=== PATIENT | female | born 1990 | race Caucasian/White ===

== ENCOUNTER 2024-11-09 10:51 | Outpatient (AMB) | payer MEDICAID, SELFPAY ==
[2024-11-09 11:36] VITALS: BP 121/75; PULSE 68; RESP 14; TEMP 36.8; O2SAT 98; BMI 21.0
--- NOTE | 2024-11-09 11:36 | AMB.OBINITIA ---
Vital Signs 11/09/24 11:36 Height 1.68 m Height Method Stated Weight 59.08 kg Weight Measurement Method Standing Scale BMI 21.0 BP 121/75 Blood Pressure Source Automatic Cuff Blood Pressure Location Left Upper Arm Position Sitting Respiration 14 Pulse 68 Pulse Source Monitor Temp 98.3 F Temp Source Oral Pulse Oximetry (%) 98 Oxygen Delivery Method Room Air Allergies/Home Meds Allergies & Medications Allergies No Known Allergies Allergy (Verified 11/09/24 11:39) Medication Reconciliation PNV 153-FA 400 mcg-om3 35 mg-dha 25 mg-epa 5 mg-fish oil chew tablet ( Gummies) 1 tab PO QDAY 90 days #90 tabs 11/09/24 [Rx] doxylamine 10 mg-pyridoxine (vit B6) 10 mg tablet,delayed release (Diclegis) 1 tab PO BID 30 days #60 tabs 11/09/24 [Rx] Intake Visit Data Collection New Patient or Established: New Patient (never been to [facility]) Reason for Visit:: CARE Seen by Clinical Staff ONLY (RN/MA): No Health Administration Teacher Required: No Do You Feel Safe at Home: Yes Authorities Contacted: N/A PCP or OBGYN visit in last 3 months: Yes Hx Now: Yes Are you currently on any form of Control: No Pain Present Currently: Yes Pain Location: Head Pain Scale Used: Pierce-Vizcaino/Numerical Pain scale:: 3 Smoking Status Smoking Status: Former smoker Questionnaires Covid-19 Vaccine Questionnaire Has patient been vacinated for Covid-19 Have you been vacinated for Covid-19: No PHQ-9 PHQ-2 Over the last 2 weeks, how often have you been bothered by any of the following problems? 1. Little interest or pleasure in doing things: not at all 2. Feeling down, depressed, or hopeless: not at all Total score: 0 PHQ-9 3. Trouble falling or staying asleep, or sleeping too much: Not at all 4. Feeling tired or having little energy: Not at all 5. Poor appetite or overeating: Not at all 6. Feeling bad about yourself - or that you are a failure or have let yourself or your family down: Not at all 7. Trouble concentrating on things, such as reading the newspaper or watching television: Not at all 8. Moving or speaking so slowly that other people could have noticed? - Or the opposite - being so fidgety or restless that you have been moving around a lot more than usual: not at all 9. Thoughts that you would be better off or of hurting yourself in some way: Not at all Total score: 0 Source: Developed by Drs. Austin Cifuentes, Michelle Malik, Rj Aguilar and colleagues, with an educational ruby from [employer]. Depression screen completed yes Social History Living Situation History Marital Status: Single Lives With: Family Housing: House Tobacco History Smoking Status: Former smoker Alcohol History Alcohol Intake: Never Domestic Abuse History Do You Feel Safe at Home: Yes History of Present Illness HPI Narrative 34 yo forOBI. LMP 08/14/24. EDC 05/21/25. sure dates. No PMH,No surgery. prev THC, stopped. autistic child. Increased nausea/vomiting, lost 5lb. denies bleeding,leaking or uc. happy about OB Initial Visit OB Flowsheet OB Flowsheet Initial Weight: Not Recorded Date <del>?</del> EGA Weight BP Alb Glu CTX Pres Fundal ht FHR Mov Dilation Station Effacement Hx Notes Visit Note 11/09/24 <del>?</del> 12w 3d 59.08 kg 121/75 absent unknown 12 156 absent 34-year-old 2 para 1 for OBI. Last period was August 14, 2024. EDC May 29, 2024. Patient has sure dates. Previous history of THC use but she stopped with . No OB complaints. She is very happy. Increased nausea and vomiting still patient would like something for that. vitamins switched to the gummy form. And I also started patient on Diclegis for nausea and vomiting. She is good to take that twice a day. Discussed comfort measures and diet. Discussed increased weight gain. I scheduled patient with Dr. Castaneda for MFM. And OB panel today with A1c and NIPT and carrier screens. Return in 3 weeks for OB Menstrual History Menstrual reliability: definite Flow: normal Menstrual regularity: regular Monthly: Yes Age at menarche: 18 On control pills at conception: No Associated symptoms (LMP): Reports nausea, vomiting, fatigue and breast tenderness OB History : 2 Para: 1 # of Living Children: 1 Delivery History 1st : Child's name: EVE date: 04/14/21 sex: female Gestational age at delivery (weeks): 40 Delivery type: vaginal Delivery complications: NONE History of depression before or after : No Infection History & Risk Evaluation History of STDs: none Genetic Screening & History Genetic Screening/Teratology Counseling - Includes patient, baby's father, or anyone in either family with: 1. Patient's age 35 years or older as of estimated date of delivery: No 2. Thalassemia (Citizen Of The [place], Latvian, Mediterranean, or Background); MCV less than 80: No 3. Neural Tube Defect (Meningomyelocele, Spina Bifida, or Anencephaly): No 4. Congenital Heart Defect: No 5. Down Syndrome: No 6. Adriano-Sachs (Ashkenazi Jew, Cajun, Cambodian Egyptian): No 7. Mirella Disease (Ashkenazi Jew): No 8. Familial Dysautonomia (Ashkenazi Jew): No 9. Sickle Cell Disease or Trait (): No 10. Hemophilia or other blood disorders: No 11. Muscular Dystrophy: No 12. Cystic Fibrosis: No 13. [place]'s Chorea: No 14. Mental Retardation/Autism: Yes (AUTISM/DAUGHTER) If Yes,was person tested for Fragile X?: Yes 15. Other inherited genetic or chromosomal disorder: Yes 16. Maternal Metabolic Disorder (EG,TYPE 1 Diabetes, PKU): Yes 17. Patient or baby's father had a child with defects not listed above: Yes 18. Recurrent loss or a stillbirth: Yes 19. Medications (including supplements, vitamins, herbs or otc drugs)/illicit/recreational drugs/alcohol since last menstrual period: Yes 20. Any other: Yes Infection History 1. Live with someone with TB or exposed to TB: Yes 2. Rash or viral illness since last menstrual period: Yes 3. Hepatitis B,C: Yes Other (see comments) Source: [employer] [place] [employer] Review of Systems Review of Systems Systems Reviewed: All systems reviewed, normal except as documented Constitutional Constitutional: Reports fatigue Gastrointestinal Gastrointestinal: Reports nausea and Reports vomiting Endocrine Endocrine: Reports fatigue Exam General Limitations: no limitations General Appearance: alert, in no apparent distress, comfortable, cooperative, healthy appearing, well developed and well groomed Head Head exam: atraumatic, normocephalic and normal inspection Neck Neck exam: Present normal inspection, full ROM and trachea midline Chest Chest inspection: Present normal inspection and symmetric chest wall rise Resp Respiratory exam: Present normal lung sounds bilaterally Card Cardiovascular exam: Present regular rate, normal rhythm and normal heart sounds Abdominal Abdominal exam: Present soft and normal bowel sounds Psych Psychiatric exam: Present normal affect and normal mood Office Procedures OB Clinic LOC & Office Proc's Nursing/Assessment Patient Status: Initial/New Patient OB Clinic Nursing Assessment: Medication Reconciliation, Update PMH in EMR and Vital Signs OB Clinic Coordination of Care: Complex Care and Chronic Disease 1-5, Consent,records obtained, informed consent, Education Simp Pt/Fam, 1 Ins Authorization, Lab and Imaging orders, Results/Orders obtained and Staff clarify orders Special Needs: Heart tones New Patient Charge New Patient Point Assignment: [id number] New Patient Point Charge: COLLEGE SPORTS ASSISTANT Level 4 ([id number]) Assessment & Plan Diagnosis / Problem List (1) Encounter for supervision of high risk in second trimester, antepartum: Status: Acute Plan Schedule M ultrasound with Dr. Castaneda. Discussed comfort measures for nausea and vomiting. Start Diclegis twice a day. And I discussed comfort measures such as clear diet avoiding drinking and eating. Discussed SAB precautions. OB panel with A1c and NIPT carrier screens today. Return in 3 weeks OB check Additional Plan Follow Up: 3 Weeks (obc)
== END 2024-11-09 12:06 | disposition home or self-care (01) ==
PROVIDERS: Supervising Provider Advanced Practice Midwife; Visit Provider Advanced Practice Midwife
DX: O09.891 Supervision of other high risk pregnancies, first trimester (principal); O21.9 Vomiting of pregnancy, unspecified; Z3A.12 12 weeks gestation of pregnancy; Z87.891 Personal history of nicotine dependence
CPT/HCPCS: 99204; G0463

== ENCOUNTER 2024-12-07 10:15 | Outpatient (AMB) | payer MEDICAID, SELFPAY ==
--- NOTE | 2024-12-07 10:28 | OBCLNT_ITS ---
Vital Signs 12/07/24 10:34 Height 1.68 m Height Method Stated Weight 61.292 kg Weight Measurement Method Standing Scale BMI 21.7 BP 116/73 Blood Pressure Source Automatic Cuff Blood Pressure Location Left Upper Arm Position Sitting Respiration 16 Pulse 72 Pulse Source Palpation Temp 97.2 F Temp Source Oral Pulse Oximetry (%) 98 Oxygen Delivery Method Room Air Allergies/Home Meds Allergies & Medications Allergies No Known Allergies Allergy (Verified 12/07/24 10:28) Medication Reconciliation doxylamine 10 mg-pyridoxine (vit B6) 10 mg tablet,delayed release (Diclegis) 1 tab PO BID 30 days #60 tabs 11/09/24 [Rx Confirmed 12/07/24] PNV 153-FA 400 mcg-om3 35 mg-dha 25 mg-epa 5 mg-fish oil chew tablet ( Gummies) 1 tab PO QDAY 90 days #90 tabs 11/20/24 [Rx Confirmed 12/07/24] Intake Visit Data Collection New Patient or Established: Established Patient (seen at [facility] within 3 years) Reason for Visit:: OBC Seen by Clinical Staff ONLY (RN/MA): No Coal Washer Tender Required: No Do You Feel Safe at Home: Yes Authorities Contacted: N/A PCP or OBGYN visit in last 3 months: Yes Date of Last PCP or OBGYN visit: 11/09/24 Are you currently on any form of Control: Yes Pain Present Currently: No Pain Scale Used: Pierce-Vizcaino/Numerical Pain scale:: 0 Smoking Status Smoking Status: Former smoker Questionnaires Covid-19 Vaccine Questionnaire Has patient been vacinated for Covid-19 Have you been vacinated for Covid-19: Yes PHQ-9 PHQ-2 Over the last 2 weeks, how often have you been bothered by any of the following problems? 1. Little interest or pleasure in doing things: not at all 2. Feeling down, depressed, or hopeless: not at all Total score: 0 PHQ-9 3. Trouble falling or staying asleep, or sleeping too much: Not at all 4. Feeling tired or having little energy: Not at all 5. Poor appetite or overeating: Not at all 6. Feeling bad about yourself - or that you are a failure or have let yourself or your family down: Not at all 7. Trouble concentrating on things, such as reading the newspaper or watching television: Not at all 8. Moving or speaking so slowly that other people could have noticed? - Or the opposite - being so fidgety or restless that you have been moving around a lot more than usual: not at all 9. Thoughts that you would be better off or of hurting yourself in some way: Not at all Total score: 0 If you checked off any problems, how difficult have these problems made it for you to do your work, take care of things at home, or get along with other people?: not difficult at all Source: Developed by Drs. Austin Cifuentes, Michelle Malik, Rj Aguilar and colleagues, with an educational ruby from [employer]. Depression screen completed yes Social History Living Situation History Lives With: Family Housing: House Tobacco History Smoking Status: Former smoker Second Hand Smoke Exposure: No Alcohol History Alcohol Intake: Never Domestic Abuse History Do You Feel Safe at Home: Yes Care OB Visit Log OB Flowsheet Initial Weight: Not Recorded Date -?-?-?-?-?-?-?-?-?-?-?-?- EGA Weight BP Alb Glu CTX Pres Fundal ht FHR Mov Dilation Station Effacement Hx Notes Visit Note 11/09/24 -?-?-?-?-?-?-?-?-?-?-?-?- 12w 3d 59.08 kg 121/75 absent unknown 12 156 absent 34-year-old 2 para 1 for OBI. Last period was August 14, 2024. EDC May 29, 2024. Patient has sure dates. Previous history of THC use but she stopped with . No OB complaints. She is very happy. Increased nausea and vomiting still patient would like something for that. P renatal vitamins switched to the gummy form. And I also started patient on Diclegis for nausea and vomiting. She is good to take that twice a day. Discussed comfort measures and diet. Discussed increased weight gain. I scheduled patient with Dr. Castaneda for MFM. And OB panel today with A1c and NIPT and carrier screens. Return in 3 weeks for OB 12/07/24 -?-?-?-?-?-?-?-?-?-?-?-?- 16w 3d 61.292 kg 116/73 absent unknown 15 156 active No OB complaints. Nausea and vomiting is improving. Light movement. Denies leaking or bleeding. aFP today. Foll ow-up with MFM for ultrasound. Discussed comfort measures for nausea and vomiting. Continue prenatals. Return in 4 weeks OB check MIKI Calculator Estimated Delivery Date Method Current WG Current Estimate 05/21/25 LMP (Certain) 16w 3d Notes Visit Date: 12/07/24 Last Updated by: Taylor Rodriguez CNM OB panelO+,abs-, rpr;;nr, rub imm, hbsag-,hiv-,HC-, GC/CT-, NIPT-/SMA/CF- Visit Date: 11/09/24 Last Updated by: Taylor Rodriguez CNM 34yo . LMP 08/14/24. EDC : 05/21/24 Office Procedures OB Clinic LOC & Office Proc's Nursing/Assessment Patient Status: Established Patient OB Clinic Nursing Assessment: Medication Reconciliation, Update PMH in EMR and Vital Signs OB Clinic Coordination of Care: Education Complex Pt/Fam, Consent,records obtained, informed consent, Lab and Imaging orders, Results/Orders obtained and Staff clarify orders Special Needs: Heart tones Established Patient Charge Established Patient Point Assignment: 115 Established Patient Point Charge: EP Level 3 (80-115) Assessment & Plan Diagnosis / Problem List (1) Encounter for supervision of high risk in second trimester, antepartum: Status: Acute Plan aFP today. Follow-up on MFM appointment. Patient is scheduled for January 18. Discussed SAB precautions. Return in 4 weeks OB check Additional Plan Follow Up: 4 Weeks (ob)
[2024-12-07 10:34] VITALS: BP 116/73; PULSE 72; RESP 16; TEMP 36.2; O2SAT 98; BMI 21.7
== END 2024-12-07 11:15 | disposition home or self-care (01) ==
LOC: HODSOBC 10:15
PROVIDERS: Supervising Provider Advanced Practice Midwife; Visit Provider Advanced Practice Midwife
DX: O09.892 Supervision of other high risk pregnancies, second trimester (principal); O21.9 Vomiting of pregnancy, unspecified; Z3A.16 16 weeks gestation of pregnancy; Z87.891 Personal history of nicotine dependence
CPT/HCPCS: 99213; G0463

== ENCOUNTER 2024-12-28 10:05 | Outpatient (AMB) | payer MEDICAID, SELFPAY ==
[2024-12-28 10:19] VITALS: BP 118/69; PULSE 75; RESP 16; TEMP 36.8; O2SAT 98; BMI 21.7
--- NOTE | 2024-12-28 10:19 | AMB.OBVISIT ---
Vital Signs 12/28/24 10:19 Height 1.68 m Height Method Stated Weight 61.405 kg Weight Measurement Method Standing Scale BMI 21.7 BP 118/69 Blood Pressure Source Automatic Cuff Blood Pressure Location Left Upper Arm Position Sitting Respiration 16 Pulse 75 Pulse Source Monitor Temp 98.2 F Temp Source Oral Pulse Oximetry (%) 98 Oxygen Delivery Method Room Air Allergies/Home Meds Allergies & Medications Allergies No Known Allergies Allergy (Verified 12/28/24 10:20) Medication Reconciliation doxylamine 10 mg-pyridoxine (vit B6) 10 mg tablet,delayed release (Diclegis) 1 tab PO BID 30 days #60 tabs 11/09/24 [Rx Confirmed 12/28/24] PNV 153-FA 400 mcg-om3 35 mg-dha 25 mg-epa 5 mg-fish oil chew tablet ( Gummies) 1 tab PO QDAY 90 days #90 tabs 11/20/24 [Rx Confirmed 12/28/24] Intake Visit Data Collection New Patient or Established: Established Patient (seen at [facility] within 3 years) Reason for Visit:: OBC Seen by Clinical Staff ONLY (RN/MA): No Slab Lifting Engineer Required: No Do You Feel Safe at Home: Yes Authorities Contacted: N/A PCP or OBGYN visit in last 3 months: Yes Date of Last PCP or OBGYN visit: 12/07/24 Hx Now: Yes Are you currently on any form of Control: No Pain Present Currently: No Pain Scale Used: Pierce-Vizcaino/Numerical Pain scale:: 0 Smoking Status Smoking Status: Former smoker Questionnaires Covid-19 Vaccine Questionnaire Has patient been vacinated for Covid-19 Have you been vacinated for Covid-19: No PHQ-9 PHQ-2 Over the last 2 weeks, how often have you been bothered by any of the following problems? 1. Little interest or pleasure in doing things: not at all 2. Feeling down, depressed, or hopeless: not at all Total score: 0 PHQ-9 3. Trouble falling or staying asleep, or sleeping too much: Not at all 4. Feeling tired or having little energy: Not at all 5. Poor appetite or overeating: Not at all 6. Feeling bad about yourself - or that you are a failure or have let yourself or your family down: Not at all 7. Trouble concentrating on things, such as reading the newspaper or watching television: Not at all 8. Moving or speaking so slowly that other people could have noticed? - Or the opposite - being so fidgety or restless that you have been moving around a lot more than usual: not at all 9. Thoughts that you would be better off or of hurting yourself in some way: Not at all Total score: 0 If you checked off any problems, how difficult have these problems made it for you to do your work, take care of things at home, or get along with other people?: not difficult at all Source: Developed by Drs. Austin Cifuentes, Michelle Malik, Rj Aguilar and colleagues, with an educational ruby from [employer]. Depression screen completed yes Social History Living Situation History Lives With: Family Housing: House Tobacco History Smoking Status: Former smoker Second Hand Smoke Exposure: No Alcohol History Alcohol Intake: Never Domestic Abuse History Do You Feel Safe at Home: Yes History of Present Illness HPI Narrative The patient is a 34-year-old -0-0-1 who usually sees Taylor. She was placed on my schedule today as an ER follow-up. She states she went into [facility] over the weekend on 12/26/2024 with increasing pressure. They aaliyah blood work did a urinalysis and did an ultrasound and told her everything was fine. She is reporting tailbone pain and throbbing in her vagina. She states that she grabbed a mirror and discussed with her boyfriend and she feels she has varicosities in her vulva. 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 She is reporting movement no loss of fluids or vaginal bleeding. Her first baby was induced at 41 weeks. Care OB Visit Log OB Flowsheet Initial Weight: Not Recorded Date <del>?</del> EGA Weight BP Alb Glu CTX Pres Fundal ht FHR Mov Dilation Station Effacement Hx Notes Visit Note 11/09/24 <del>?</del> 12w 3d 59.08 kg 121/75 absent unknown 12 156 absent 34-year-old 2 para 1 for OBI. Last period was August 14, 2024. EDC May 29, 2024. Patient has sure dates. Previous history of THC use but she stopped with . No OB complaints. She is very happy. Increased nausea and vomiting still patient would like something for that. vitamins switched to the gummy form. And I also started patient on Diclegis for nausea and vomiting. She is good to take that twice a day. Discussed comfort measures and diet. Discussed increased weight gain. I scheduled patient with Dr. Castaneda for MFM. And OB panel today with A1c and NIPT and carrier screens. Return in 3 weeks for OB 12/07/24 <del>?</del> 16w 3d 61.292 kg 116/73 absent unknown 15 156 active No OB complaints. Nausea and vomiting is improving. Light movement. Denies leaking or bleeding. aFP today. Follow-up with MFM for ultrasound. Discussed comfort measures for nausea and vomiting. Continue prenatals. Return in 4 weeks OB check 12/28/24 <del>?</del> 19w 3d 61.405 kg 118/69 absent unknown 21 145 active No vaginal bleeding or loss of fluids. 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 Recommend brace. Discussed frequent breaks at work if possible not carrying heavy trays. Discussed vulvar varicosities and a vulvar brace. MIKI Calculator Estimated Delivery Date Method Current WG Current Estimate 05/21/25 LMP (Certain) 19w 3d Expected Delivery Route/Plan O+/antibody screen negative/ rubella immune/ RPR nonreactive/hepatitis B surface antigen negative/HIV negative hepatitis C negative//GC chlamydia negative/NIPT negative/SMA negative/CF negative Specific Issue/Plans 34-year-old -0-0-1 2021 at 41 weeks. Patient had epidural. She did not push long. She was induced for postdates. Notes Visit Date: 12/28/24 Last Updated by: Maria Guadalupe Dixon (OB Clinic)MD 20-week ultrasound ordered from [facility] in [place]. Visit Date: 12/07/24 Last Updated by: Taylor Rodriguez CNM OB panelO+,abs-, rpr;;nr, rub imm, hbsag-,hiv-,HC-, GC/CT-, NIPT-/SMA/CF- Visit Date: 11/09/24 Last Updated by: Taylor Rodriguez CNM 34yo . LMP 08/14/24. EDC : 05/21/24 Office Procedures OBC Clinic LOC & Office Proc's Nursing/Assessment Patient Status: Established Patient OB Clinic Nursing Assessment: Medication Reconciliation, Update PMH in EMR and Vital Signs OB Clinic Coordination of Care: Education Complex Pt/Fam, Consent,records obtained, informed consent, Lab and Imaging orders, Results/Orders obtained and Staff clarify orders Special Needs: Heart tones Established Patient Charge Established Patient Point Assignment: 115 Established Patient Point Charge: EP Level 3 (80-115) Assessment & Plan Diagnosis / Problem List (1) Encounter for supervision of high risk in second trimester, antepartum: Status: Acute Plan: Brace to stabilize pubic symphyseal joint. Vulvar support brace. Follow-up in 4 weeks. Structural survey ordered at [facility] in [place]. Additional Plan Follow Up: 4 Weeks
== END 2024-12-28 10:31 | disposition home or self-care (01) ==
LOC: HODSOBC 10:05
PROVIDERS: Supervising Provider Obstetrics & Gynecology; Visit Provider Obstetrics & Gynecology
DX: O09.892 Supervision of other high risk pregnancies, second trimester (principal); Z3A.19 19 weeks gestation of pregnancy; O99.891 Other specified diseases and conditions complicating pregnancy; M54.50 Low back pain, unspecified; Z87.891 Personal history of nicotine dependence
CPT/HCPCS: 99213; G0463

== ENCOUNTER 2025-02-19 09:20 | Outpatient (AMB) | payer MEDICAID, SELFPAY ==
[2025-02-19 09:30] VITALS: BP 119/69; PULSE 86; RESP 18; TEMP 36.2; O2SAT 98; BMI 23.4
--- NOTE | 2025-02-19 09:30 | OBCLNT_ITS ---
Vital Signs 02/19/25 09:30 Height 1.68 m Height Method Stated Weight 66.224 kg Weight Measurement Method Standing Scale BMI 23.4 BP 119/69 Blood Pressure Source Automatic Cuff Blood Pressure Location Left Upper Arm Position Sitting Respiration 18 Pulse 86 Pulse Source Monitor Temp 97.2 F Temp Source Oral Pulse Oximetry (%) 98 Oxygen Delivery Method Room Air Allergies/Home Meds Allergies & Medications Allergies No Known Allergies Allergy (Verified 02/19/25 09:31) Medication Reconciliation doxylamine 10 mg-pyridoxine (vit B6) 10 mg tablet,delayed release (Diclegis) 1 tab PO BID 30 days #60 tabs 11/09/24 [Rx Confirmed 02/19/25] PNV 153-FA 400 mcg-om3 35 mg-dha 25 mg-epa 5 mg-fish oil chew tablet ( Gummies) 1 tab PO QDAY 90 days #90 tabs 11/20/24 [Rx Confirmed 02/19/25] Immunizations Immunizations Flu Vaccine in the Last 12 Months: No Flu Vaccine Exclusion Criteria: Refused by Patient Care OB Visit Log OB Flowsheet Initial Weight: Not Recorded Date -?-?-?-?-?-?-?-?-?-?-?-?- EGA Weight BP Alb Glu CTX Pres Fundal ht FHR Mov Dilation Station Effacement Hx Notes Visit Note 11/09/24 -?-?-?-?-?-?-?-?-?-?-?-?- 12w 3d 59.08 kg 121/75 absent unknown 12 156 absent 34-year-old 2 para 1 for OBI. Last period was August 14, 2024. EDC May 29, 2024. Patient has sure dates. Previous history of THC use but she stopped with . No OB complaints. She is very happy. Increased nausea and vomiting still patient would like something for that. P renatal vitamins switched to the gummy form. And I also started patient on Diclegis for nausea and vomiting. She is good to take that twice a day. Discussed comfort measures and diet. Discussed increased weight gain. I scheduled patient with Dr. Castaneda for MFM. And OB panel today with A1c and NIPT and carrier screens. Return in 3 weeks for OB 12/07/24 -?-?-?-?-?-?-?-?-?-?-?-?- 16w 3d 61.292 kg 116/73 absent unknown 15 156 active No OB complaints. Nausea and vomiting is improving. Light movement. Denies leaking or bleeding. aFP today. Foll ow-up with MFM for ultrasound. Discussed comfort measures for nausea and vomiting. Continue prenatals. Return in 4 weeks OB check 12/28/24 -?-?-?-?-?-?-?-?-?-?-?-?- 19w 3d 61.405 kg 118/69 absent unknown 21 145 active No vaginal bleeding or loss of fluids. 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 Recommend brace. Discussed frequent breaks at work if possible not carrying heavy trays. Discussed vulvar varicosities and a vulvar brace. 02/19/25 -?-?-?-?-?-?-?-?-?-?-?-?- 27w 0d 66.224 kg 119/69 absent unknown 27 145 active No OB complaints. Denies leaking, bleeding, contractions. Reports good movement Comfort measures for low back pain. Third trimester labs ordered. Patient has a follow-up MFM March 01. Discussed labor precautions MIKI Calculator Estimated Delivery Date Method Current WG Current Estimate 05/21/25 LMP (Certain) 27w 0d Other Estimates 05/21/25 Ultrasound #1 27w 0d 05/21/25 Manual 27w 0d final miki: 05/21, EFW:39% Expected Delivery Route/Plan O+/antibody screen negative/ rubella immune/ RPR nonreactive/hepatitis B surface antigen negative/HIV negative hepatitis C negative//GC chlamydia negative/NIPT negative/SMA negative/CF negative Specific Issue/Plans 34-year-old -0-0-1 2021 at 41 weeks. Patient had epidural. She did not push long. She was induced for postdates. Notes Visit Date: 12/28/24 Last Updated by: Maria Guadalupe Dixon (OB Clinic)MD 20-week ultrasound ordered from [facility] in [place]. Visit Date: 12/07/24 Last Updated by: Taylor Rodriguez CNM OB panelO+,abs-, rpr;;nr, rub imm, hbsag-,hiv-,HC-, GC/CT-, NIPT-/SMA/CF- Visit Date: 11/09/24 Last Updated by: Taylor Rodriguez CNM 34yo . LMP 08/14/24. EDC : 05/21/24 Office Procedures [facility] Clinic LOC & Office Proc's Nursing/Assessment Patient Status: Established Patient OB Clinic Nursing Assessment: Medication Reconciliation, Update PMH in EMR and Vital Signs OB Clinic Coordination of Care: Consent,records obtained, informed consent, Education Simp Pt/Fam, Lab and Imaging orders, Results/Orders obtained and Staff clarify orders Special Needs: Heart tones Established Patient Charge Established Patient Point Assignment: 110 Established Patient Point Charge: EP Level 3 (80-115) Assessment & Plan Diagnosis / Problem List (1) Encounter for supervision of high risk in second trimester, antepartum: Status: Acute Plan Third trimester labs ordered. Comfort measures for back pain. Discussed labor precautions. Follow-up of [facility] March 01. Return in 4 weeks OB check Additional Plan Follow Up: 4 Weeks (obc)
== END 2025-02-19 10:13 | disposition home or self-care (01) ==
LOC: HODSOBC 09:20
PROVIDERS: Supervising Provider Advanced Practice Midwife; Visit Provider Advanced Practice Midwife
DX: O09.892 Supervision of other high risk pregnancies, second trimester (principal); O99.891 Other specified diseases and conditions complicating pregnancy; M54.50 Low back pain, unspecified; Z28.21 Immunization not carried out because of patient refusal
CPT/HCPCS: 99213; G0463

== ENCOUNTER 2025-03-31 09:19 | Outpatient (AMB) | payer MEDICAID, SELFPAY ==
[2025-03-31 09:43] VITALS: BP 116/80; PULSE 75; RESP 16; TEMP 36.4; O2SAT 98; BMI 24.0
--- NOTE | 2025-03-31 09:43 | OBCLNT_ITS ---
Vital Signs 03/31/25 09:43 Height 1.68 m Height Method Stated Weight 67.585 kg Weight Measurement Method Standing Scale BMI 24.0 BP 116/80 Blood Pressure Source Automatic Cuff Blood Pressure Location Right Upper Arm Position Sitting Respiration 16 Pulse 75 Pulse Source Monitor Temp 97.6 F Temp Source Temporal Artery Scan Pulse Oximetry (%) 98 Oxygen Delivery Method Room Air Allergies/Home Meds Allergies & Medications Allergies No Known Allergies Allergy (Verified 03/31/25 09:45) Medication Reconciliation PNV 153-FA 400 mcg-om3 35 mg-dha 25 mg-epa 5 mg-fish oil chew tablet ( Gummies) 1 tab PO QDAY 90 days #90 tabs 11/20/24 [Rx Confirmed 03/31/25] Immunizations Immunizations Flu Vaccine in the Last 12 Months: No Flu Vaccine Exclusion Criteria: Refused by Patient Care OB Visit Log OB Flowsheet Initial Weight: Not Recorded Date -?-?-?-?-?-?-?-?-?-?-?-?- EGA Weight BP Alb Glu CTX Pres Fundal ht FHR Mov Dilation Station Effacement Hx Notes Visit Note 11/09/24 -?-?-?-?-?-?-?-?-?-?-?-?- 12w 3d 59.08 kg 121/75 absent unknown 12 156 absent 34-year-old 2 para 1 for OBI. Last period was August 14, 2024. EDC May 29, 2024. Patient has sure dates. Previous history of THC use but she stopped with . No OB complaints. She is very happy. Increased nausea and vomiting still patient would like something for that. P renatal vitamins switched to the gummy form. And I also started patient on Diclegis for nausea and vomiting. She is good to take that twice a day. Discussed comfort measures and diet. Discussed increased weight gain. I scheduled patient with Dr. Castaneda for MFM. And OB panel today with A1c and NIPT and carrier screens. Return in 3 weeks for OB 12/07/24 -?-?-?-?-?-?-?-?-?-?-?-?- 16w 3d 61.292 kg 116/73 absent unknown 15 156 active No OB complaints. Nausea and vomiting is improving. Light movement. Denies leaking or bleeding. aFP today. Foll ow-up with MFM for ultrasound. Discussed comfort measures for nausea and vomiting. Continue prenatals. Return in 4 weeks OB check 12/28/24 -?-?-?-?-?-?-?-?-?-?-?-?- 19w 3d 61.405 kg 118/69 absent unknown 21 145 active No vaginal bleeding or loss of fluids. 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 Recommend brace. Discussed frequent breaks at work if possible not carrying heavy trays. Discussed vulvar varicosities and a vulvar brace. 02/19/25 -?-?-?-?-?-?-?-?-?-?-?-?- 27w 0d 66.224 kg 119/69 absent unknown 27 145 active No OB complaints. Denies leaking, bleeding, contractions. Reports good movement Comfort measures for low back pain. Third trimester labs ordered. Patient has a follow-up MFM March 01. Discussed labor precautions 03/31/25 -?-?-?-?-?-?-?-?-?-?-?-?- 32w 5d 67.585 kg 116/80 absent cephalic 32 145 active Patient will start disability March 27. Last date of work March 26. Reports good movement. Denies leaking, bleeding, contractions. Last day of work will be March 26. And disability will start March 27. Discussed labor precautions. Kick count twice a day. Tdap today. Return in 2 weeks OB check MIKI Calculator Estimated Delivery Date Method Current WG Current Estimate 05/21/25 LMP (Certain) 32w 5d Other Estimates 05/21/25 Ultrasound #1 32w 5d 05/21/25 Ultrasound #2 32w 5d 05/21/25 Manual 32w 5d final miki: 05/21, EFW:59% Expected Delivery Route/Plan O+/antibody screen negative/ rubella immune/ RPR nonreactive/hepatitis B surface antigen negative/HIV negative hepatitis C negative//GC chlamydia negative/NIPT negative/SMA negative/CF negative Specific Issue/Plans 34-year-old -0-0-1 2021 at 41 weeks. Patient had epidural. She did not push long. She was induced for postdates. Notes Visit Date: 03/31/25 Last Updated by: Taylor Rodriguez CNM 03/31: 3rd tri lab wnl Visit Date: 12/28/24 Last Updated by: Maria Guadalupe Dixon (OB Clinic)MD 20-week ultrasound ordered from [facility] in [place]. Visit Date: 12/07/24 Last Updated by: Taylor Rodriguez CNM OB panelO+,abs-, rpr;;nr, rub imm, hbsag-,hiv-,HC-, GC/CT-, NIPT-/SMA/CF- Visit Date: 11/09/24 Last Updated by: Taylor Rodriguez CNM 34yo . LMP 08/14/24. EDC : 05/21/24 Office Procedures [facility] Clinic LOC & Office Proc's Nursing/Assessment Patient Status: Established Patient OB Clinic Nursing Assessment: Medication Reconciliation, Update PMH in EMR and Vital Signs OB Clinic Coordination of Care: Complex Care and Chronic Disease 1-5, Education Complex Pt/Fam, Consent,records obtained, informed consent, 1 Ins Authorization, Lab and Imaging orders, Results/Orders obtained and Staff clarify orders Special Needs: Heart tones Established Patient Charge Established Patient Point Assignment: 155 Established Patient Point Charge: EP Level 4 (120-155) Injection/Vaccine Admin Admin 1st Vaccine: Yes Immunizations diphth,pertus(acell),tetanus 2.5 Lf unit-8 mcg-5 Lf/0.5mL IM syringe Performing Provider: Taylor Rodriguez CNM Performing Location: [facility] Administered by: Azucena Wilks MA on 03/31/25 10:19 Dose Route Admin Location Dispensed Lot Number Expiration Date Pack age [facility] [address] Mon[place] 0.5 mL IM Right Deltoid 0.5 mL [id number] 09/17/27 01448-423-69 [id number] [employer] VIS Given Date VIS Provided VIS Publication Date 03/31/25 Single Vaccine 24 Eligibility Eligibility Date Funding Source Public Non-[facility] Assessment & Plan Diagnosis / Problem List (1) Encounter for supervision of high risk in third trimester, antepartum: Status: Acute Plan Start disability March 27. And last date of work will be March 26. Discussed labor precautions. Kick count twice a day. Discussed danger signs symptoms return 2 weeks OB check Additional Plan Follow Up: 2 Weeks (obc)
== END 2025-03-31 10:17 | disposition home or self-care (01) ==
LOC: HODSOBC 09:19
PROVIDERS: Supervising Provider Advanced Practice Midwife; Visit Provider Advanced Practice Midwife
DX: O09.93 Supervision of high risk pregnancy, unspecified, third trimester (principal); Z3A.32 32 weeks gestation of pregnancy; Z23 Encounter for immunization
CPT/HCPCS: 90471; 90715; 99214; G0463